=== PATIENT | male | born 2000 | race Caucasian/White ===

== ENCOUNTER 2020-09-17 17:25 | Emergency (ER) | payer OTHER ==
[2020-09-18] MEDS ORDERED: EC-NAPROXEN500 MG PO (02:54)
== END 2020-09-18 03:05 | disposition home or self-care (01) ==
LOC: ER1 17:25
DX: S39.012A Strain of muscle, fascia and tendon of lower back, initial encounter (principal); S20.211A Contusion of right front wall of thorax, initial encounter; S40.012A Contusion of left shoulder, initial encounter; F17.210 Nicotine dependence, cigarettes, uncomplicated; V49.40XA Driver injured in collision with unspecified motor vehicles in traffic accident, initial encounter; Y92.410 Unspecified street and highway as the place of occurrence of the external cause
CPT/HCPCS: 70450; 71045; 72100; 72125; 73010; 96372; 99284; J1885